=== PATIENT | male | born 1950 | race Caucasian/White ===

== ENCOUNTER 2020-11-24 | Outpatient (REF) | payer MEDICARE, SELFPAY ==
--- NOTE | ~2020-11-24 | XR_ITS ---
EXAMINATION: XR SHOULDER, LEFT CLINICAL INFORMATION: Shoulder pain COMPARISON: None TECHNIQUE: The left shoulder is imaged in 3 views. FINDINGS: There are degenerative changes glenohumeral joint with joint narrowing and mild subchondral sclerosis and inferior spurring from the glenoid rim and inferior medial humeral head. No erosive change. There are mild degenerative changes acromioclavicular joint without separation. No visible rotator cuff calcifications. XR/XR shoulder LT min 2V IMPRESSION: 1. Degenerative changes glenohumeral joint and acromioclavicular joint. 2. No visible rotator cuff calcifications.
== END 2020-11-24 00:01 | disposition home or self-care (01) ==
LOC: HO.HOSX
PROVIDERS: Visit Provider Orthopaedic Surgery
DX: M25.512 Pain in left shoulder (principal)
CPT/HCPCS: 73030

== ENCOUNTER → 2020-11-24 12:31 | Outpatient (BNVA) | payer MEDICARE, SELFPAY | PROVIDERS: PCP Internal Medicine; Visit Provider Orthopaedic Surgery | DX: M19.012 Primary osteoarthritis, left shoulder (principal) | CPT/HCPCS: Q3014 ==

== ENCOUNTER 2021-01-18 13:03 | Outpatient (REF) | payer MEDICARE, SELFPAY ==
[2021-01-18 15:07] LABS: PSA,Total (Free>4and<10) 21.57 ng/mL (0.00-4.00)
== END 2021-01-18 13:04 | disposition home or self-care (01) ==
LOC: HO.LAB 13:03
PROVIDERS: PCP Internal Medicine; Visit Provider Urology
DX: Z12.5 Encounter for screening for malignant neoplasm of prostate (principal); R97.20 Elevated prostate specific antigen [PSA]
CPT/HCPCS: 36415; 84153

== ENCOUNTER 2021-04-29 11:54 | Outpatient (REF) | payer MEDICARE, SELFPAY ==
[2021-04-29 13:27] LABS: Alanine Aminotransferase 21 U/L (0-40); Albumin Level 4.8 g/dL (3.5-5.0); Alkaline Phosphatase 60 U/L (39-117); Anion Gap 18 (12-20); Aspartate Amino Transferase 21 U/L (5-37); Bilirubin Total 0.6 mg/dL (0.0-1.0); Blood Urea Nitrogen 25 mg/dL (9-16); Calcium 10.4 mg/dL (8.4-10.2); Carbon Dioxide 26 mmol/L (22-29); Chloride 103 mmol/L (96-108); Estimated Glomerular Filt Rate > 60; Glucose Random 77 mg/dL (60-115); Potassium 5.6 mmol/L (3.3-5.1); Sodium 141 mmol/L (135-145); Total Protein 7.8 g/dL (6.5-8.0); Uric Acid 10.8 mg/dL (3.4-7.0)
== END 2021-04-29 11:55 | disposition home or self-care (01) ==
LOC: HO.LAB 11:54
PROVIDERS: PCP Internal Medicine; Visit Provider Nurse Practitioner Family
DX: M79.89 Other specified soft tissue disorders (principal)
CPT/HCPCS: 36415; 80053; 84550

== ENCOUNTER 2021-04-30 11:23 | Outpatient (REF) | payer MEDICARE, SELFPAY ==
--- NOTE | ~2021-04-30 | US_ITS ---
EXAMINATION: US VENOUS ULTRASOUND WITH DOPPLER LOWER EXTREMITY, RIGHT CLINICAL INFORMATION: Right foot swelling COMPARISON: None TECHNIQUE: Ultrasound of the deep veins is performed from the hip to the calf with compression sonography and color and pulse Doppler assessment. Spectral analysis with color-flow imaging is performed. FINDINGS: There is normal venous compression and respiratory variation and augmented flow. The visualized common femoral vein, superficial femoral vein, profunda femoral vein, popliteal vein, and the trifurcation region shows no evidence of deep venous thrombosis. There is no significant popliteal fossa cyst. If the patient's symptoms persist, followup ultrasound in 5 days 7 days might be of value to exclude proximal propagation from a non-visualized calf vein. US/US venous duplex LE RT IMPRESSION: No DVT demonstrated in the right lower extremity.
== END 2021-04-30 11:24 | disposition home or self-care (01) ==
LOC: HO.HMGCX 11:23
PROVIDERS: PCP Internal Medicine; Visit Provider Internal Medicine
DX: R60.0 Localized edema (principal); M79.89 Other specified soft tissue disorders
CPT/HCPCS: 93971

== ENCOUNTER → 2021-12-21 08:48 | Outpatient (BNVA) | payer SELFPAY | PROVIDERS: PCP Internal Medicine; Visit Provider Physician Assistant Medical | DX: Z02.79 Encounter for issue of other medical certificate (principal) ==

== ENCOUNTER 2022-05-14 10:10 | Emergency (ER) | payer MEDICARE, SELFPAY ==
--- NOTE | ~2022-05-14 | US_ITS ---
EXAMINATION: US VENOUS ULTRASOUND WITH DOPPLER LOWER EXTREMITY, RIGHT CLINICAL INFORMATION: Pain and swelling COMPARISON: None TECHNIQUE: Ultrasound of the deep veins is performed from the hip to the calf with compression sonography and color and pulse Doppler assessment. Spectral analysis with color-flow imaging is performed. FINDINGS: There is normal venous compression and respiratory variation and augmented flow. The visualized common femoral vein, superficial femoral vein, profunda femoral vein, popliteal vein, and the trifurcation region shows no evidence of deep venous thrombosis. There is no significant popliteal fossa cyst. If the patient's symptoms persist, followup ultrasound in 5 days 7 days might be of value to exclude proximal propagation from a non-visualized calf vein. US/US venous duplex LE RT IMPRESSION: No DVT demonstrated in the right lower extremity.
--- NOTE | ~2022-05-14 | XR_ITS ---
EXAMINATION: XR KNEE, RIGHT CLINICAL INFORMATION: Pain COMPARISON: Bilateral knee x-rays January 24, 2017 TECHNIQUE: Four views of the right knee. FINDINGS: No fracture or dislocation. Moderate size suprapatellar joint effusion. Joint spaces are well-maintained. Small enthesophytes off the superior patellar pole. No focal soft tissue swelling of the anterior knee. Mild vascular calcifications noted. XR/XR knee RT 4V IMPRESSION: Moderate joint effusion.
[2022-05-14 10:13] VITALS: BP 109/76; PULSE 63; RESP 14; TEMP 36.4; O2SAT 99; BMI 24.4
[2022-05-14 12:17] VITALS: BP 136/88; PULSE 70; RESP 12; O2SAT 99
[2022-05-14] MEDS: Ibuprofen 600 MG TABLET PO (12:25)
[2022-05-14] MEDS: predniSONE 20 MG TABLET 60 MG PO (12:25)
--- NOTE | 2022-05-14 12:25 | ED_ITS ---
HPI - Extremity Injury (Lower) General Chief Complaint: Extremity Injury, Lower Stated Complaint: ? DVT R Leg Time Seen by Provider: 05/14/22 10:15 History of Present Illness HPI Narrative: Patient complains of right leg and right knee pain, he did go swimming for the 1st time and felt some pain while he was swimming, was the 1st time and several weeks, but did not feel an abrupt muscle tear He has no shortness of breath or chest pain, no fever no redness no other joint swollen He does have a history of gout in the past Related Data Previous Rx's Medication Instructions Recorded prednisone 10 mg tablet 10 mg PO DAILY 14 days #14 tabs 10/13/21 doxycycline hyclate 100 mg tablet 100 mg PO BID 10 days #20 tabs 12/28/21 ibuprofen 800 mg tablet 800 mg PO Q8H PRN pain #20 tabs 05/14/22 Allergies Allergy/AdvReac Type Severity Reaction Status Date / Time levofloxacin [From LEVAQUIN] Allergy Unknown JOINT Verified 04/29/21 11:20 SWELLING Review of Systems Review of Systems: Positive for right knee and right leg pain Negatives are no fever no chills no dizziness no weakness no fainting no feeling faint no headache no neck pain no back pain no chest pain no shortness of breath no skin rash no other joints swollen Yes all other systems are reviewed and are negative PMFSH Past Medical History Source: nursing notes reviewed Medical History Gout Hernia Surgical History Hx of appendectomy Family History Family History Mother No problems noted. Father No problems noted. 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 Physical Exam Vital Signs: Vital Signs: Last Vital Signs Temp 97.5 F 05/14/22 10:13 Pulse 70 05/14/22 12:17 Resp 12 05/14/22 12:17 BP 136/88 05/14/22 12:17 Pulse Ox 99 05/14/22 12:17 O2 Del Method 05/14/22 12:17 BMI result Body Mass Index 24.4 General appearance no distress Head is normocephalic atraumatic Neck is supple Chest is clear no respiratory distress Extremities the right knee is swollen, it does extend to 180 and flex past 90, there is no redness or warmth, skin is normal in appearance The right calf is tender and mildly swollen, no redness no warmth no wound Pulses are intact in dorsalis pedis, neurovascular intact distal with no impairment of sensation or motor function Skin no rashes Course Course Course Narrative: Ultrasound of the right leg was done and did not show a DVT, but as the leg is swollen and tender I did advise the patient that he should get a follow-up ultrasound in 5-7 days to confirm that there is no developing clot As he had history of gout we started prednisone to cover that possibility, x-ray also did show some osteoarthritis and effusion so this may also be osteoarthritis He will follow with his doctor in orthopedist Discharge Plan Discharge Clinical Impression: Effusion of right knee, Leg pain, right Patient Disposition: Home, Self-Care Additional Instructions: Ultrasound did not show a blood clot, but the leg was swollen and painful so it is recommended to get a follow-up ultrasound in 5-7 days through your primary care doctor or if that is not possible you can return here if symptoms persist For the right knee pain x-ray showed water on the knee as well as some arthritis so follow with orthopedist As you have had gout before there is a possibility that this is gout so we are treating with prednisone and Motrin Follow with primary doctor for referral for repeat ultrasound as well as recheck for possible gout Return to the ER any time any worse condition or any concerns Prescriptions: New ibuprofen 800 mg tablet 800 mg PO Q8H PRN (Reason: pain) Qty: 20 0RF No Action prednisone 10 mg tablet 10 mg PO DAILY 14 Days Qty: 14 0RF doxycycline hyclate 100 mg tablet 100 mg PO BID 10 Days Qty: 20 0RF Referrals: Owen Heaton MD [Physician] - (Right knee effusion and arthritis)
== END 2022-05-14 12:30 | disposition home or self-care (01) ==
PROVIDERS: Emergency Provider Emergency Medicine; PCP Internal Medicine
DX: M25.461 Effusion, right knee (principal); M79.604 Pain in right leg; M17.11 Unilateral primary osteoarthritis, right knee
CPT/HCPCS: 73564; 93971; 99283; 99284

== ENCOUNTER 2023-06-28 09:34 | Outpatient (AMB) | payer MEDICARE, SELFPAY ==
--- NOTE | 2023-06-28 10:22 | MHC.OFFWIV ---
Intake Vital Signs 06/28/23 10:24 Height 5 ft 11 in Weight 187 lb BMI 26.1 BP 120/80 Blood Pressure Location Lt brachial Position Sitting Pulse 48 L Pulse Source Pulse Oximeter Pulse Oximetry (%) 100 Oxygen Delivery Method Room Air Intake Visit Reasons: EP, Right lower arm swelling due to bug bite Intake Note: Patient here because he was bit bug yesterday while in the yard and right hand is very swollen and red, His had marked it last night and when they checked it this morning they noticed the swelling and redness has spread up the arm. pt denies it being painful just itchy at times. Patient Tobacco Use Status: Former Tobacco user (20 years ago) Quit Date: 20 years ago Allergies levofloxacin [From LEVAQUIN] Allergy (Unknown, Verified 06/28/23 10:26) JOINT SWELLING Do you need a note to return to daycare/school/sports/work: No HPI EP, Right lower arm swelling due to bug bite HPI Details 72-year-old male presents to the office for a sick visit. Patient is reporting swelling in the right hand. Symptoms started after a bug bite. Predominant symptoms of itching. [facility] Medical History Gout Hernia Surgical History Hx of appendectomy Family History Mother No problems noted. Father No problems noted. 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 Able to flex and extend fingers with no difficulty. Will full range of motion at the wrist. Assessment & Plan Assessment & Plan (1) Bee sting allergy: Code(s): Z91.030 - Bee allergy status Plan: Prednisone called in. If symptoms do not improve to follow-up here. Medications: New prednisone 60 mg (3 x 20 mg) PO DAILY 9 tabs 0RF Coding Level of Care Code Est Pt Level 3 (82016) Diagnoses Bee sting allergy Z91.030
[2023-06-28 10:24] VITALS: BP 120/80; PULSE 48; O2SAT 100; BMI 26.1
== END 2023-06-28 12:31 | disposition home or self-care (01) ==
PROVIDERS: PCP Internal Medicine; Visit Provider Internal Medicine
DX: Z91.030 Bee allergy status (principal)
CPT/HCPCS: 99213

== ENCOUNTER 2023-08-15 12:49 | Outpatient (AMB) | payer MEDICARE, SELFPAY ==
[2023-08-15 12:51] VITALS: BP 138/78; PULSE 65; O2SAT 97; BMI 25.1
--- NOTE | 2023-08-15 12:51 | MHC.PC.OV ---
Vital Signs 08/15/23 12:51 Height 5 ft 11 in Weight 180 lb BMI 25.1 BP 138/78 Blood Pressure Location Lt brachial Position Sitting Pulse 65 Pulse Source Pulse Oximeter Pulse Oximetry (%) 97 Oxygen Delivery Method Room Air Intake Visit Reasons: Annual Exam Rn Hospice Required: No Accompanied by: Self / Same As Patient Allergies levofloxacin [From LEVAQUIN] Allergy (Unknown, Verified 08/15/23 13:19) JOINT SWELLING Medication List - Last Reconciled 08/15/23 by Too Cain MD No Known Home Meds Tobacco use date assessed: 02/10/23 Fall risk assessment: No Falls in past year Last assessed Fall Risk: 08/15/23 Dental Screening Dental Screen Date: 08/15/23 Did you have a dental visit in the last 12 months?: Yes Did you have a dental problem in the last 6 months where you did not have access to dental care?: No Was dental information given to patient?: Patient has dentist HPI Annual Exam HPI Details Patient comes in today for his annual physical examination - he was last seen by me in October 2019 States that he has been sick since last week, with increased cough and congestion, fever and sore throat States that he tested negative for COVID on a home test kit done a few days ago He is presently taking some OTC Nyquil PRN for symptomatic relief and feels that his coughing is a lot better now although he still feels like he has some chest congestion now He denies any headaches or dizziness Denies any chest pains, has some RODRIGUEZ that are mostly mild lately No nausea/vomiting, no abdominal pain No change in bowel habits noted Denies any acute urinary symptoms PFSH Medical History (Updated 08/16/23 @ 05:40 by Too Cain MD) Elevated PSA Osteoarthritis Pure hypercholesterolemia Hernia Gout Surgical History (Updated 08/16/23 @ 05:39 by Too Cain MD) Hx of prostate biopsy (~04/09/13) Hx of appendectomy (~1995) Family History Mother No problems noted. Father No problems noted. 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 1. Little interest or pleasure in doing things: not at all 2. Feeling down, depressed, or hopeless: not at all 3. Trouble falling or staying asleep, or sleeping too much: not at all 4. Feeling tired or having little energy: not at all 5. Poor appetite or overeating: not at all 6. Feeling bad about yourself - or that you are a failure or have let yourself or your family down: not at all 7. Trouble concentrating on things, such as reading the newspaper or watching television: not at all 8. Moving or speaking so slowly that other people could have noticed. Or the opposite - being so fidgety or restless that you have been moving around a lot more than usual: not at all 9. Thoughts that you would be better off or of hurting yourself in some way: not at all Total score: 0 Depression Screening Interpretation: Negative Depression Screening Done: Yes 28778 - PHQ-9 Billing: Yes Source: Developed by Drs. Anatoliy Mazariegos, Ce Lino, Johnny Sifuentes and colleagues, with an educational adrienne from [employer]. Thrive Questionnaire Date Thrive assessed: 08/15/23 I am a: Patient What is your living situation today?: I have a steady place to live Within the past 12 months, did the food you bought not last and you didn't have the money to get more?: Never true Within the past 12 months, did you worry whether your food would run out before you got money to buy more?: Never true Do you have trouble paying for medicines?: No Do you have trouble getting transportation to medical appointments?: No Do you have trouble paying your heating and electricity bill?: No Do you have trouble taking care of your child, family member or friend?: No Do you have trouble with day-to-day activities such as bathing, preparing meals, shopping, managing finances, etc.?: No Are you currently unemployed and looking for a job?: No Are you interested in more education?: No Currently or been in a relationship where the following occur: no concerns reported AUDIT C Alcohol Use Questionnaire (AUDIT-C) 1. How often do you have a drink containing alcohol?: Never 3. How often do you have six or more drinks on one occasion?: Never Total Score: 0 Score Reviewed/Action Taken: Yes TANYA-7 AMB Questionnaire TANYA-7 Date TANYA - 7 assessed: 02/10/23 Source: Developed by Drs. Anatoliy Mazariegos, Ce Lino, Johnny Sifuentes and colleagues, with an educational adrienne from [employer]. Review of Systems Const Denies chills, Denies fatigue, Denies fever(s), Denies headache(s), Denies malaise and Denies weakness Eyes Denies blurry vision, Denies change in vision, Denies irritation and Denies itchy eyes ENT Denies dysphagia, Denies dizziness, Denies otalgia, Denies headache(s), Denies nasal congestion, Denies neck pain, Denies odynophagia and Denies sore throat Card Denies chest pain, Denies rapid heart rate, Denies irregular heart rhythm, Denies palpitations and Denies dyspnea Resp Denies chest congestion, Denies cough, Denies dyspnea and Denies wheezing GI Denies abdominal pain, Denies bloating, Denies constipation, Denies dysphagia, Denies heartburn, Denies diarrhea, Denies nausea, Denies odynophagia and Denies vomiting Denies hematuria, Denies difficulty urinating, Denies dysuria, Denies urinary frequency and Denies urinary urgency Musc Denies back pain, Denies arthralgias, Denies joint swelling, Denies muscle weakness and Denies neck pain Skin/Breast Denies change in pigmentation, Denies lesions, Denies rash and Denies unusual bruising Neuro Denies dizziness, Denies headache(s), Denies paresthesias and Denies weakness Endo Denies fatigue and Denies palpitations Aller/Immun Denies itchy eyes and Denies wheezing Physical exam (Primary Care) Vital Signs: Last Vital Signs Pulse 65 08/15/23 12:51 BP 138/78 08/15/23 12:51 Pulse Ox 97 08/15/23 12:51 Oxygen Delivery Method Room Air 08/15/23 12:51 BMI result Body Mass Index 25.1 Tobacco/Smoking Status: Tobacco use Status Tobacco use date assessed 02/10/23 08/15/23 12:55 Patient Tobacco Use Status Former Tobacco user (08/15/23 12:55 years ago) PHQ-9: PHQ-9 Score PHQ-9: Total score 0 08/15/23 13:21 Depression Screening Interpretation: Negative Thrive Assessment: Date of Thrive Assessment Date Thrive assessed 04/29/21 08/15/23 12:55 Currently or been in a relationship where the following occur: no concerns reported Const General: no acute distress, alert and awake Orientation/consciousness: patient oriented x3 HENMT Head: Yes normocephalic and Yes atraumatic Ears: external ears normal, TM's normal bilaterally and EAC's normal General nose exam: No nasal discharge present Face and sinus: Yes normal facial exam and Yes sinuses nontender Teeth and gingiva: dentition normal Throat: Yes posterior oropharynx normal and Yes tonsils normal (no TP congestion) Eyes Eyelids: Yes eyelids normal Conjunctivae: conjunctivae normal Pupils: Equal, round and reactive pupils present EOM: EOMs intact bilaterally Neck Neck: Yes no lymphadenopathy and Yes supple Thyroid: Thyroid normal Resp Auscultation: clear to auscultation bilaterally, no rales and no wheezes Cardio Rate: regular rate Rhythm: regular rhythm Heart sounds: no murmurs GI Palpation (GI): Soft to palpation, nontender and No hepatosplenomegaly present Auscultation: normal bowel sounds General: Yes no CVA tenderness Back/Spine/Pelvis Back: no CVA tenderness Thoracic/Lumbar Spine: thoracic and lumbar spine normal to inspection Skin Lesions: no lesions Rashes: no rashes Neuro General: patient oriented x3, moves all extremities, no focal motor deficits and CN's II-XI intact bilaterally Cranial nerves: Yes Equal, round and reactive pupils present Cognition (Neuro): normal cognition Gait exam (Neuro): Normal gait present Extrem General: Yes no clubbing, cyanosis or edema Assessment and Plan Assessment & Plan (1) Annual physical exam: Code(s): Z00.00 - Encounter for general adult medical examination without abnormal findings Plan: Check labs (2) Pure hypercholesterolemia: Code(s): E78.00 - Pure hypercholesterolemia, unspecified Plan: Reinforced low cholesterol diet His total cholesterol level was at 272 mg/dL and LDL cholesterol was at 214 mg/dL when they were last checked back on 10/14/2019 - patient has not had his cholesterol rechecked since Will have him recheck his fasting lipids RICK for follow-up (3) Elevated PSA: Code(s): R97.20 - Elevated prostate specific antigen [PSA] Plan: Patient states that he's had a couple of biopsies done in the past that came out negative States that he has no significant urinary symptoms Follow up with urology as scheduled (4) Gout: Code(s): M10.9 - Gout, unspecified Qualifiers: Gout site: unspecified site Gout etiology: idiopathic Chronicity: chronic Presence of tophus: without tophus Qualified Code(s): M1A.00X0 - Idiopathic chronic gout, unspecified site, without tophus (tophi) Plan: Reinforced low purine diet Serum uric acid level was still elevated at 10.8 when last checked on 04/29/2021; was up to 17.4 back on 10/14/2019 Patient states that he's had no acute gout flare ups lately Will recheck his serum uric acid level RICK for follow up (5) Osteoarthritis: Code(s): M19.90 - Unspecified osteoarthritis, unspecified site Qualifiers: Osteoarthritis location: multiple joints Osteoarthritis type: primary Qualified Code(s): M15.9 - Polyosteoarthritis, unspecified Plan: X-rays of the left shoulder done back on 11/24/2020 revealed (+) degenerative changes of the glenohumeral joint and acromioclavicular joint. MRI of the right hip done back in August 2019 revealed mild osteoarthritis of the right hip with anterosuperior labral tear and moderate right distal gluteus minimus tendinosis and trochanteric bursitis Follow-up with orthopedics as scheduled or as needed (6) Colon cancer screening: Code(s): Z12.11 - Encounter for screening for malignant neoplasm of colon Plan: Patient states that he's had a colonoscopy done in the past (many years ago) but cannot remember exactly when and where - is likely done in [place] as there is no record of this in his chart here at [facility] ever since he started coming here as a patient back in 2012 and is more than 10 years ago Recall that he had a bout of diverticulitis after his colonoscopy and he does not wish to have a repeat colonoscopy done because of this but agrees to do Cologuard testing instead - Cologuard ordered Plan Follow up in 6 months Orders: Orders Complete Blood Count Auto Diff 08/15/23 Z00.00 - Encounter for general adult medical examination without abnormal findings TSH reflex Free T4 08/15/23 E78.00 - Pure hypercholesterolemia, unspecified, Z00.00 - Encounter for general adult medical examination without abnormal findings UA CC w/rflx Micro + Cult 08/15/23 R30.0 - Dysuria, Z00.00 - Encounter for general adult medical examination without abnormal findings Vitamin D 25-OH Total 08/15/23 E55.9 - Vitamin D deficiency, unspecified, Z00.00 - Encounter for general adult medical examination without abnormal findings PSA,Total (Free>4and<10) 08/15/23 R97.20 - Elevated prostate specific antigen [PSA], Z00.00 - Encounter for general adult medical examination without abnormal findings Comprehensive [place]. Panel Fast 08/15/23 E78.00 - Pure hypercholesterolemia, unspecified, Z00.00 - Encounter for general adult medical examination without abnormal findings Lipid Panel 08/15/23 E78.00 - Pure hypercholesterolemia, unspecified, Z00.00 - Encounter for general adult medical examination without abnormal findings Uric Acid 08/15/23 M10.9 - Gout, unspecified, Z00.00 - Encounter for general adult medical examination without abnormal findings XR chest 2V 08/15/23 J98.8 - Other specified respiratory disorders Referrals Cologuard Test Z12.11 - Encounter for screening for malignant neoplasm of colon, Z12.12 - Encounter for screening for malignant neoplasm of rectum Review Patient declined Colonoscopy: 08/15/23 Coding Level of Care Code Est Pt Prev Care >65y(24867) Diagnoses Annual physical exam Z00.00 Pure hypercholesterolemia E78.00 Elevated PSA R97.20 Idiopathic chronic gout without tophus, unspecified site M1A.00X0 Gout site: unspecified site Gout etiology: idiopathic Chronicity: chronic Presence of tophus: without tophus Primary osteoarthritis involving multiple joints M15.9 Osteoarthritis location: multiple joints Osteoarthritis type: primary Colon cancer screening Z12.11
== END 2023-08-15 13:38 | disposition home or self-care (01) ==
LOC: HO.HMGH 12:49
PROVIDERS: PCP Internal Medicine; Visit Provider Internal Medicine
DX: Z00.00 Encounter for general adult medical examination without abnormal findings (principal); E78.00 Pure hypercholesterolemia, unspecified; R97.20 Elevated prostate specific antigen [PSA]; M1A.00X0 Idiopathic chronic gout, unspecified site, without tophus (tophi); M15.9 Polyosteoarthritis, unspecified; Z12.11 Encounter for screening for malignant neoplasm of colon
CPT/HCPCS: 99214; 99397

== ENCOUNTER 2023-08-17 07:45 | Outpatient (REF) | payer MEDICARE, SELFPAY ==
--- NOTE | ~2023-08-17 | XR_ITS ---
EXAMINATION: XR CHEST CLINICAL INFORMATION: Respiratory disorders. COMPARISON: None available. TECHNIQUE: 2 views of the chest were obtained. FINDINGS: Degenerative changes in the thoracic spine. Cardiac silhouette borderline enlarged. There is no gross pneumothorax. No pleural effusion. A 1 cm nodular density projects over the posterior inferior aspect of a lower thoracic vertebral body, possibly a bony, soft tissue or lung parenchymal nodule. Dedicated CT scan of the chest recommended for further evaluation. XR/XR chest 2V IMPRESSION: 1. A 1 cm nodular density projects over the posterior inferior aspect of a lower thoracic vertebral body, possibly a bony, soft tissue or lung parenchymal nodule. Dedicated CT scan of the chest recommended for further evaluation. 2. Borderline enlarged cardiac silhouette.
[2023-08-17 07:59] LABS: MANUAL DIFF FLAG NO
[2023-08-17 08:11] LABS: Basophils Absolute Auto 0.1 X10*3/uL (0.0-0.2); Basophils Percent Auto 0.6 % (0-2); Eosinophils Absolute Auto 0.2 X10*3/uL (0.0-0.4); Eosinophils Percent Auto 1.4 % (0-4); Hematocrit 41.9 % (42.0-52.0); Hemoglobin 13.6 g/dl (14.0-18.0); Imm Gran Pct Auto 0.9 % (0.0-0.4); Lymphocytes Absolute Auto 2.7 X10*3/uL (1.2-4.9); Lymphocytes Percent Auto 25.1 % (20-40); Mean Corpuscular HGB Conc 32.5 g/dl (31.0-36.0); Mean Corpuscular Hemoglobin 28.3 pg (27.0-33.0); Mean Corpuscular Volume 87.1 fL (80.0-98.0); Mean Platelet Volume 8.8 fL (9.4-12.4); Monocytes Absolute Auto 0.7 X10*3/uL (0.1-1.2); Monocytes Percent Auto 6.6 % (2-11); Neutrophils Absolute Auto 7.1 x10*3/uL (2.0-8.3); Neutrophils Percent Auto 65.4 % (45-73); Platelet Count 430 X10*3/uL (160-400); Red Blood Count 4.81 X10*6/uL (4.60-5.80); White Blood Count 10.9 X10*3/uL (4.8-10.8)
[2023-08-17 08:22] LABS: Appearance Urine Clear; Color Urine Yellow; Glucose Urine UA Negative (Negative); Leukocyte Esterase Urine Negative (Negative); Nitrite Urine Negative (Negative); PH 5.5 (5.0-9.0); Urine Blood Negative (Negative); Urine Ketones Negative (Negative); Urine Protein Negative (Neg-Trace)
[2023-08-17 08:47] LABS: Alanine Aminotransferase 25 U/L (0-40); Albumin Level 4.3 g/dL (3.5-5.0); Alkaline Phosphatase 62 U/L (39-117); Anion Gap 13 (12-20); Aspartate Amino Transferase 23 U/L (5-37); Bilirubin Total 0.3 mg/dL (0.0-1.0); Blood Urea Nitrogen 20 mg/dL (9-16); Calcium 9.8 mg/dL (8.4-10.2); Carbon Dioxide 28 mmol/L (22-29); Chloride 105 mmol/L (96-108); Cholesterol 253 mg/dL (<200); Estimated Glomerular Filt Rate > 60; Glucose Fasting 108 mg/dL (60-99); HDL Cholesterol 38 mg/dL (>40); LDL Cholesterol Calculated 195 mg/dL (<100); Potassium 5.3 mmol/L (3.3-5.1); Sodium 141 mmol/L (135-145); Total Protein 7.7 g/dL (6.5-8.0); Triglycerides 102 mg/dL (<150); Uric Acid 6.8 mg/dL (3.4-7.0)
[2023-08-17 09:03] LABS: Vitamin D 25-OH Total 126.3 ng/mL (>30)
[2023-08-17 09:10] LABS: PSA,Total (Free>4and<10) 17.34 ng/mL (0.00-4.00)
== END 2023-08-17 07:46 | disposition home or self-care (01) ==
LOC: HO.XRAY 07:45
PROVIDERS: PCP Internal Medicine; Visit Provider Internal Medicine
DX: Z00.00 Encounter for general adult medical examination without abnormal findings (principal); Z12.5 Encounter for screening for malignant neoplasm of prostate; E78.00 Pure hypercholesterolemia, unspecified; R97.20 Elevated prostate specific antigen [PSA]; M10.9 Gout, unspecified; R30.0 Dysuria; E55.9 Vitamin D deficiency, unspecified; J98.8 Other specified respiratory disorders
CPT/HCPCS: 36415; 71046; 80053; 80061; 81003; 82306; 84153; 84443; 84550; 85025

== ENCOUNTER 2023-09-14 14:14 | Outpatient (REF) | payer MEDICARE, SELFPAY ==
--- NOTE | ~2023-09-14 | CT_ITS ---
EXAMINATION: CT CHEST WITH CONTRAST CLINICAL INFORMATION: 1 cm nodular density in posterior inferior lower thoracic vertebral body seen on chest x-ray COMPARISON: Chest x-ray on 08/17/2023, CT scan of chest on 12/03/2019 TECHNIQUE: Multidetector volumetric CT imaging of the chest was obtained after the administration of 65 mL of Omnipaque 350 intravenous contrast without immediate adverse reactions. Axial MIP volume rendering provided. Sagittal and coronal reformatted images were obtained. This CT examination was performed using dose optimization techniques as appropriate, variously including the following: *Automated exposure control *Adjustment of mA and/or kV according to patient size (this includes techniques or standardized protocols for targeted exams where dose is matched to indication/reason for exam; i.e. extremities or head) *Use of iterative reconstruction technique DLP: 129 mGy-cm FINDINGS: LUNGS: Oblique sagittal platelike atelectasis is seen in the left lower lobe posterior segment. A spiculated irregular lesion with air bronchograms is seen in left lower lobe posterior basal segment extending to the left lung base, measuring 1.9 cm in AP diameter, 1.7 cm in width, 3.7 cm in vertical height, series 6 image #163, series 9 image #30. Branching collection of spiculated lesions with air bronchograms is seen in right lower lobe posterior basal segment extending to the right lung base, measuring 1.4 cm in AP diameter, 2.7 cm in width, 1.6 cm in vertical height, series 6 image # [id number], series 9 image # 78. A groundglass nodule is seen at lateral pleural border of right upper lobe apical segment measuring 0.7 cm in diameter, series 6 image #53. A groundglass lesion is seen in posterior lateral right upper lobe apical segment, measuring 1.4 cm in AP diameter, 3.2 cm in width, 1.4 cm in vertical height, series 6 image #68, series 9 image #93. Irregular nodule is seen at anterior lateral left upper lobe anterior segment, measuring 5.5 mm in size, series 6 image #85-88. PLEURA: No pleural effusion or pneumothorax is seen. PERICARDIUM: No pericardial effusion is seen. MEDIASTINUM AND DESIREE: No abnormally enlarged mediastinal or hilar lymph nodes are seen. TRACHEOBRONCHIAL TREE: Trachea and bilateral mainstem bronchi are patent. THORACIC AORTA: The thoracic aorta is normal in size and smoothly patent. CORONARY ARTERY CALCIFICATIONS: Mild PULMONARY ARTERIES: The main pulmonary arteries show normal enhancement. CHEST WALL AND LOWER NECK: The subcutaneous and muscular chest wall are intact with no focal lesion. No abnormal mass lesion could be seen in the visualized lower neck. BONES: Multilevel advanced degenerative thoracic disc disease, anterior and lateral syndesmophytes are present. Right No fracture or dislocation. No focal bone lesion diagnostic of metastatic disease could be seen in the thorax. VISUALIZED UPPER ABDOMEN: Bilateral adrenal glands are not enlarged. CT/CT chest w IV con IMPRESSION: 1. Interval development of Multiple spiculated irregular lesions with air bronchograms are seen in both lower lobes, as described above. Findings could represent focal infection especially atypical pneumonia, but developing lung tumors are difficult to exclude. According to the UPDATED 2017 Fleischner Society recommendations, the advised follow-up imaging for multiple solid nodules with the largest measuring greater than [address] of [address] at 3 months, PET/CT, or tissue sampling as clinically appropriate if nodules are located in the upper lobe and/or demonstrate suspicious morphology. If multiple solid nodules greater than 8mm are located in the middle/lower lobes, recommend CT follow-up at 3 to 6 months. In high risk patients, subsequent CT follow-up at 18 to 24 months is recommended. In low-risk patients, subsequent CT follow-up at 18 to 24 months is optional. 2. Additional groundglass lesions are seen in right upper lobe apical segment, also suspicious of atypical pneumonia. 3. No abnormally enlarged mediastinal and/or hilar lymph nodes. Fleischner guidelines were followed.
[2023-09-14] MEDS: iohexoL 350 MG/ML 100 ML INFUS..BTL IV (15:09)
== END 2023-09-14 14:15 | disposition home or self-care (01) ==
LOC: HO.CT 14:14
PROVIDERS: Visit Provider Internal Medicine
DX: R91.1 Solitary pulmonary nodule (principal)
CPT/HCPCS: 71260; Q9967

== ENCOUNTER 2023-10-05 09:12 | Outpatient (REF) | payer MEDICARE, SELFPAY ==
[2023-10-05 10:16] LABS: MANUAL DIFF FLAG NO
[2023-10-05 11:37] LABS: Basophils Absolute Auto 0.1 X10*3/uL (0.0-0.2); Basophils Percent Auto 0.7 % (0-2); Eosinophils Absolute Auto 0.1 X10*3/uL (0.0-0.4); Eosinophils Percent Auto 1.7 % (0-4); Hematocrit 42.9 % (42.0-52.0); Hemoglobin 14.3 g/dl (14.0-18.0); Imm Gran Abs Auto 0.02 X10*3/uL (0.00-0.03); Imm Gran Pct Auto 0.3 % (0.0-0.4); Lymphocytes Absolute Auto 2.4 X10*3/uL (1.2-4.9); Lymphocytes Percent Auto 32.7 % (20-40); Mean Corpuscular HGB Conc 33.3 g/dl (31.0-36.0); Mean Corpuscular Hemoglobin 28.7 pg (27.0-33.0); Mean Corpuscular Volume 86.1 fL (80.0-98.0); Mean Platelet Volume 10.3 fL (9.4-12.4); Monocytes Absolute Auto 0.6 X10*3/uL (0.1-1.2); Monocytes Percent Auto 8.3 % (2-11); Neutrophils Absolute Auto 4.2 x10*3/uL (2.0-8.3); Neutrophils Percent Auto 56.3 % (45-73); Platelet Count 286 X10*3/uL (160-400); Red Blood Count 4.98 X10*6/uL (4.60-5.80); Red Cell Distribution Width 14.7 % (11.0-16.0); White Blood Count 7.5 X10*3/uL (4.8-10.8)
[2023-10-05 12:12] LABS: Erythrocyte Sedimentation Rate 9 MM/HR (0-15)
[2023-10-05 12:23] LABS: Anion Gap 12 (12-20); Blood Urea Nitrogen 18 mg/dL (9-16); Calcium 9.7 mg/dL (8.4-10.2); Carbon Dioxide 29 mmol/L (22-29); Chloride 103 mmol/L (96-108); Estimated Glomerular Filt Rate > 60; Glucose Random 90 mg/dL (60-115); Sodium 140 mmol/L (135-145)
[2023-10-06 15:34] LABS: Anti Nuclear Antibody Screen NEGATIVE (NEGATIVE)
[2023-10-06 16:54] LABS: IgA 158 mg/dL (70-320); IgG 1105 mg/dL (600-1540); IgM 85 mg/dL (50-300)
[2023-10-07 04:18] LABS: Immunoglobulin E 12 kU/L (<OR=114)
[2023-10-08 04:58] LABS: Angiotensin Converting Enzyme 26 U/L (9-67)
[2023-10-11 13:18] LABS: Asperg fumigatus Precip Abs NEGATIVE (NEGATIVE); Micropoly faeni Abs NEGATIVE (NEGATIVE); Pigeon serum Abs NEGATIVE (NEGATIVE); Saccharo pora viridis Abs NEGATIVE (NEGATIVE); Thermo candidus Abs NEGATIVE (NEGATIVE); Thermoa vulgaris #1 NEGATIVE (NEGATIVE)
== END 2023-10-05 09:13 | disposition home or self-care (01) ==
LOC: HO.LAB 09:12
PROVIDERS: PCP Internal Medicine; Visit Provider Hospitalist
DX: T78.40XA Allergy, unspecified, initial encounter (principal); R91.8 Other nonspecific abnormal finding of lung field; J98.4 Other disorders of lung; J18.9 Pneumonia, unspecified organism
CPT/HCPCS: 36415; 80048; 82164; 82784; 82785; 85025; 85652; 86003; 86038; 86331; 86606; 86609; 99202

== ENCOUNTER 2023-10-05 09:12 | Outpatient (AMB) | payer MEDICARE, SELFPAY ==
--- NOTE | 2023-10-05 09:29 | A.OFFVIS_ITS ---
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 The patient is a 73-year-old gentleman with a history of a chronic cough. Apparently went to see his primary care doctor after having some type of transient respiratory illness. She is noted to have abnormal breath sounds therefore he underwent a chest x- ray which was noted to be abnormal. Based on the abnormal chest x-ray he was requested to have a CT scan of the chest which she uses had. The patient otherwise is feeling well denies any fevers or chills. Denies any weight loss. He does have a smoking history but quit more than 20 years ago. He does exercise regularly which is reassuring. Denies any night sweats. He does coughing at times is productive in nature. Sometimes he wakes up in the morning and staying the pillows from mucus while sleeping. His CT scan of the chest was personally by me I also discussed it with the patient and his . Does have some areas of ground-glass opacities suggesting some degree of pneumonitis. Appears to be more right than left. In addition to that does have some more nodular solid looking densities in the lower lung zones left more than right. Somewhat spiculated in nature. Sat clear of these entities are the same process. Indeed with his recent illness this still could be some remnants of a smoldering infection although malignancy is also in differential. As far as exposures he denies any exposure to any mold or any animals or birds. He does have a sauna. He has been using it regularly. Therefore, will have the patient undergo blood work. Will start him on a course of doxycycline to treating for and impaired infection. In addition to that he will undergo PFTs. In 8 weeks will have him repeat a CT scan of the chest to see if the areas have improved. If the nodular density has not improved then will consider further diagnostic testing at that point. [facility] Medical History (Updated 10/09/23 @ 21:20 by Ghassan Nguyễn MD) Pneumonitis Allergies Elevated PSA Osteoarthritis Pure hypercholesterolemia Hernia Gout Surgical History (Updated 08/16/23 @ 05:39 by Too Cain MD) Hx of prostate biopsy (~04/09/13) Hx of appendectomy (~1995) Family History Mother No problems noted. Father No problems noted. 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 Review of Systems Const Denies chills, Denies fatigue, Denies fever(s), Denies headache(s), Denies malaise and Denies weakness Eyes Denies blurry vision, Denies change in vision, Denies irritation and Denies itchy eyes ENT Denies dysphagia, Denies dizziness, Denies otalgia, Denies headache(s), Denies nasal congestion, Denies neck pain, Denies odynophagia and Denies sore throat Card Denies chest pain, Denies rapid heart rate, Denies irregular heart rhythm, Denies palpitations and Denies dyspnea Resp Denies chest congestion, Denies cough, Denies dyspnea and Denies wheezing GI Denies abdominal pain, Denies bloating, Denies constipation, Denies dysphagia, Denies heartburn, Denies diarrhea, Denies nausea, Denies odynophagia and Denies vomiting Denies hematuria, Denies difficulty urinating, Denies dysuria, Denies urinary frequency and Denies urinary urgency Musc Denies back pain, Denies arthralgias, Denies joint swelling, Denies muscle weakness and Denies neck pain Skin/Breast Denies change in pigmentation, Denies lesions, Denies rash and Denies unusual bruising Neuro Denies dizziness, Denies headache(s), Denies paresthesias and Denies weakness Endo Denies fatigue and Denies palpitations Aller/Immun Denies itchy eyes and Denies wheezing Physical Exam Vital Signs: Last Vital Signs Pulse 56 10/05/23 09:30 BP 128/70 10/05/23 09:30 Pulse Ox 98 10/05/23 09:30 Oxygen Delivery Method Room Air 10/05/23 09:30 BMI result Body Mass Index 26.4 Const General: comfortable HEENT Head: Yes normocephalic Neck Neck: Yes supple Chest Chest palpation & inspection: normal inspection of the chest Resp Effort & Inspection: normal respiratory effort Auscultation: clear to auscultation bilaterally Cardio Heart sounds: S1 normal heart sound present and S2 normal heart sound present GI Palpation (GI): Soft to palpation Skin General skin exam: no rashes or lesions noted Extrem General: Yes no clubbing, cyanosis or edema Assessment & Plan Assessment & Plan (1) Pulmonary nodules/lesions, multiple: Code(s): R91.8 - Other nonspecific abnormal finding of lung field (2) Pneumonitis: Code(s): J98.4 - Other disorders of lung (3) Allergies: Code(s): T78.40XA - Allergy, unspecified, initial encounter Qualifiers: Encounter type: initial encounter Qualified Code(s): T78.40XA - Allergy, unspecified, initial encounter (4) Pneumonia: Code(s): J18.9 - Pneumonia, unspecified organism Qualifiers: Pneumonia type: due to unspecified organism Laterality: unspecified laterality Lung location: unspecified part of lung Qualified Code(s): J18.9 - Pneumonia, unspecified organism Plan start Doxycline x 14 days Bloodwork/Allergy testing repeat CT chest in 8 weeks after the treatment of pneumonia F/U 10-12 weeks Orders: Orders Hypersensitive Pneumonitis Prf 10/05/23 J98.4 - Other disorders of lung, R91.8 - Other nonspecific abnormal finding of lung field, T78.40XA - Allergy, unspecified, initial encounter Immunoglobulins,IgG IgA IgM 10/05/23 J98.4 - Other disorders of lung, R91.8 - Other nonspecific abnormal finding of lung field, T78.40XA - Allergy, unspecified, initial encounter Immunoglobulin E 10/05/23 J98.4 - Other disorders of lung, R91.8 - Other nonspecific abnormal finding of lung field, T78.40XA - Allergy, unspecified, initial encounter Rast Allergen 10/05/23 J98.4 - Other disorders of lung, R91.8 - Other nonspecific abnormal finding of lung field, T78.40XA - Allergy, unspecified, initial encounter Basic Metabolic Panel 10/05/23 J98.4 - Other disorders of lung, R91.8 - Other nonspecific abnormal finding of lung field, T78.40XA - Allergy, unspecified, initial encounter ARIEL Reflex Titer and Pattern 10/05/23 J98.4 - Other disorders of lung, R91.8 - Other nonspecific abnormal finding of lung field, T78.40XA - Allergy, unspecified, initial encounter CT chest wo IV con 8 Weeks R91.8 - Other nonspecific abnormal finding of lung field Erythrocyte Sedimentation Rate 10/05/23 J98.4 - Other disorders of lung, R91.8 - Other nonspecific abnormal finding of lung field, T78.40XA - Allergy, unspecified, initial encounter Complete Blood Count Auto Diff 10/05/23 J98.4 - Other disorders of lung, R91.8 - Other nonspecific abnormal finding of lung field, T78.40XA - Allergy, unspecified, initial encounter Angiotensin Converting Enzyme 10/05/23 J98.4 - Other disorders of lung, R91.8 - Other nonspecific abnormal finding of lung field, T78.40XA - Allergy, unspecified, initial encounter Medications: New doxycycline monohydrate 100 mg PO BID 14 days 28 tabs 0RF R91.8 - Other nonspecific abnormal finding of lung field Coding Level of Care Code New Pt Level 4 (47451) Diagnoses Pulmonary nodules/lesions, multiple R91.8 Pneumonitis J98.4 Allergy, initial encounter T78.40XA Encounter type: initial encounter Pneumonia due to infectious organism, unspecified laterality, unspecified part of lung J18.9 Pneumonia type: due to unspecified organism Laterality: unspecified laterality Lung location: unspecified part of lung Time Spent (min) 40
[2023-10-05 09:30] VITALS: BP 128/70; PULSE 56; O2SAT 98; BMI 26.4
== END 2023-10-05 10:02 | disposition home or self-care (01) ==
PROVIDERS: PCP Internal Medicine; Visit Provider Hospitalist
DX: R91.8 Other nonspecific abnormal finding of lung field (principal); J98.4 Other disorders of lung; T78.40XA Allergy, unspecified, initial encounter; J18.9 Pneumonia, unspecified organism
CPT/HCPCS: 99204

== ENCOUNTER 2023-10-24 09:44 | Outpatient (REF) | payer MEDICARE, SELFPAY ==
--- NOTE | 2023-10-24 11:44 | PFT_ITS ---
Flows: FEV1: 108 % of predicted at 3.52 L FVC: 103 % of predicted at 4.49 L FEV1/FVC: 78 % Bronchodilator response: Absent Volumes: Total lung capacity: 87 % of predicted at 6.40 L Residual volume: 75 % of predicted at 2.00 L Slow vital capacity: 94 % of predicted at 4.40 L Expiratory reserve volume: 99 % of predicted at 1.29 L Diffusion capacity: Mildly decreased Impression: No obstructive or restrictive ventilatory defect. No bronchodilator response. Decreased diffusion capacity suggests emphysema. MTDD
== END 2023-10-24 09:45 | disposition home or self-care (01) ==
LOC: HO.RESP 09:44
PROVIDERS: PCP Internal Medicine; Visit Provider Hospitalist
DX: J98.4 Other disorders of lung (principal)
CPT/HCPCS: 94010; 94727; 94729

== ENCOUNTER → 2023-10-24 11:44 | Outpatient (BNV) | payer MEDICARE, SELFPAY | PROVIDERS: PCP Internal Medicine; Visit Provider Internal Medicine Pulmonary Disease | DX: R06.09 Other forms of dyspnea (principal) | CPT/HCPCS: 94060; 94727; 94729 ==

== ENCOUNTER 2023-11-07 14:27 | Outpatient (AMB) | payer MEDICARE, SELFPAY ==
[2023-11-07 14:36] VITALS: BP 158/75; PULSE 57; BMI 28.9
--- NOTE | 2023-11-07 14:36 | MHC.OFFVIS ---
Intake Vital Signs 11/07/23 14:36 Height 5 ft 8 in Weight 190 lb BMI 28.9 BP 158/75 H Blood Pressure Location Lt brachial Position Sitting Pulse 57 Intake Visit Reasons: Colonoscopy screening Intake Note: Patient presents to in office visit today as a new patient for colonoscopy screening. CC: Patient states that he had a colonoscopy done about 15 years ago. After the colonoscopy he was diagnosed with diverticulitis and he has been reluctant ever since to have colonoscopy done. Per patient he had a positive cologuard and his PCP advised him to come ant talk to GI specialist about his options. Health Center Manager Required: No Allergies levofloxacin [From LEVAQUIN] Allergy (Unknown, Verified 11/07/23 14:40) JOINT SWELLING HPI Colonoscopy screening HPI Details 73 year old? male here today for pre colonoscopy screening.? Patient was sent to us by his PCP.? Last colonoscopy 15 years ago. Patient just had a recent Cologuard that was positive. Patient reports that 2 or 3 months after his colonoscopy he had diverticulitis and was hospitalized.? Patient denies any gastrointestinal symptoms at this time.? Denies any personal or family history of gastrointestinal disease, colon polyps, or cancer.? Patient was found to have abnormal CT scan of the lungs and is going to see instrumentation tech again in December. Has repeat CT scan end of November. Patient does not want to proceed with colonoscopy at this point and he would like to reconsider end of December. Patient denies any melena, hematochezia, unintentional weight loss or ribbon like stools. Patient denies any dyspepsia, dysphagia or odynophagia. [facility] Medical History Pneumonitis Allergies Elevated PSA Osteoarthritis Pure hypercholesterolemia Hernia Gout Surgical History H/O right inguinal hernia repair H/O colonoscopy Hx of prostate biopsy (~04/09/13) Hx of appendectomy (~1995) Family History Mother No problems noted. Father No problems noted. 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 Review of Systems Const Denies weight gain and Denies weight loss ENT Reports no additional complaints, Denies dysphagia and Denies odynophagia Card Reports no additional complaints Resp Reports no additional complaints GI Denies abdominal pain, Denies belching, Denies melena, Denies bloating, Denies change in bowel habits, Denies dysphagia, Denies excessive flatus, Denies dyspepsia, Denies heartburn, Denies diarrhea, Denies loose stools, Denies nausea, Denies odynophagia and Denies vomiting Reports no additional complaints Musc Reports no additional complaints Neuro Reports no additional complaints Psych Reports no additional complaints Endo Reports no additional complaints Physical Exam Vital Signs: Last Vital Signs Pulse 57 11/07/23 14:36 BP 158/75 H 11/07/23 14:36 BMI result Body Mass Index 28.9 Const General: healthy appearing, no acute distress and well developed Nutritional Appearance: well nourished Orientation/consciousness: patient oriented x3 Resp Effort & Inspection: normal respiratory effort, able to speak in complete sentences, no tracheal deviation and symmetric chest movement Auscultation: clear to auscultation bilaterally Cardio Rate: regular rate GI Inspection: Yes normal to inspection and No distended Palpation (GI): Soft to palpation, not firm, nontender and No hepatosplenomegaly present Auscultation: normal bowel sounds General: Yes no CVA tenderness Back/Spine/Pelvis Back: no CVA tenderness Skin General skin exam: elasticity normal, turgor normal and dry skin Neuro General: patient oriented x3 Psych Appearance: grossly normal Mental Status: mental status grossly normal Assessment & Plan Assessment & Plan (1) Positive colorectal cancer screening using Cologuard test: Code(s): R19.5 - Other fecal abnormalities Plan Patient would like to reconsider going for colonoscopy. I will see him in and verbalizes understanding 2- 3 months, sooner on as needed basis. Patient is agreeable to this plan and verbalizes understanding. He was given the opportunity to ask questions and all questions answered. Thank you for allowing me to participate in his care Coding Level of Care Code New Pt Level 3 (00267) Diagnoses Positive colorectal cancer screening using Cologuard test R19.5 Time Spent (min) 40 Comment 30 minutes spent with patient and additional 10 minutes spent reviewing his records
== END 2023-11-07 15:09 | disposition home or self-care (01) ==
PROVIDERS: PCP Internal Medicine; Visit Provider Nurse Practitioner Family
DX: R19.5 Other fecal abnormalities (principal)
CPT/HCPCS: 99203

== ENCOUNTER → 2023-11-07 14:27 | Outpatient (BNVA) | payer MEDICARE, SELFPAY | PROVIDERS: PCP Internal Medicine; Visit Provider Nurse Practitioner Family | DX: R19.5 Other fecal abnormalities (principal) | CPT/HCPCS: 99202 ==

== ENCOUNTER 2023-11-30 10:36 | Outpatient (REF) | payer MEDICARE, SELFPAY ==
--- NOTE | ~2023-11-30 | CT_ITS ---
EXAMINATION: CT CHEST WITHOUT CONTRAST CLINICAL INFORMATION: Abnormal findings lung field COMPARISON: CT chest from 09/14/2023 TECHNIQUE: Multidetector volumetric CT imaging of the chest was done. Axial MIP volume rendering provided. Sagittal and coronal reformatted images were obtained. This CT examination was performed using dose optimization techniques as appropriate, variously including the following: *Automated exposure control *Adjustment of mA and/or kV according to patient size (this includes techniques or standardized protocols for targeted exams where dose is matched to indication/reason for exam; i.e. extremities or head) *Use of iterative reconstruction technique DLP: 254 mGy-cm FINDINGS: LUNGS/PLEURA: Previously identified spiculated irregular lesion with air bronchograms in the left lower lobe posteriorly demonstrates resolution. Additional spiculated branching lesions with air bronchograms in the right lower lobe also demonstrated resolution. Groundglass foci in the right upper lobe are no longer visualized. Stable 2 mm nodule in the lateral aspect of the left upper lobe (series 5, image 71). Triangular nodule anterior aspect of the left upper lobe (series 5, image 241), stable. Redemonstration of irregular nodule in the lateral aspect of the left upper lobe (series 5, image 223) measuring 5 mm, stable Stable subpleural calcified granuloma lateral aspect left upper lobe (series 5, image 281). No new enlarged or suspicious pulmonary nodules or masses are noted. Central airways are patent. No pneumothorax. No large pleural effusion. MEDIASTINUM: Heart is not enlarged. No pericardial effusion. Coronary artery calcifications are noted. Aneurysmal dilatation of the ascending aorta measuring 4.1 cm level of main pulmonary artery. Descending aorta at this level measures 2.4 cm. Main pulmonary artery is not enlarged. No enlarged lymph nodes per size criteria. Visualized portions of the thyroid are unremarkable. AXILLA: No lymphadenopathy. UPPER ABDOMEN: Colonic diverticulosis. OSSEOUS STRUCTURES: Osteopenia. Multilevel degenerative changes of the thoracolumbar spine. . CT/CT chest wo IV con IMPRESSION: 1. Previously identified spiculated irregular lesion with air bronchograms in the left lower lobe posteriorly demonstrates resolution. Additional spiculated branching lesions with air bronchograms in the right lower lobe also demonstrated resolution. Groundglass foci in the right upper lobe are no longer visualized. Resolution of previous findings give credence to potentially infectious/inflammatory etiology. 2. Stable bilateral pulmonary nodules the largest measuring up to 5 mm. Continued follow-up as per Fleischner criteria. No new enlarged or suspicious pulmonary nodules or masses are noted. 3. Aneurysmal dilatation of the ascending aorta measuring 4.1 cm level of main pulmonary artery. 4. Colonic diverticulosis. 5. Osteopenia. Various management parameters for solitary pulmonary nodules are in the literature. According to the Fleischner Society, recommendations for pulmonary nodules are as follows: According to the UPDATED 2017 Fleischner Society recommendations, the advised follow-up imaging for solid nodules < 6 mm is: HIGH RISK PATIENT: Optional CT at 12 months.
== END 2023-11-30 10:37 | disposition home or self-care (01) ==
LOC: HO.CT 10:36
PROVIDERS: PCP Internal Medicine; Visit Provider Hospitalist
DX: R91.8 Other nonspecific abnormal finding of lung field (principal)
CPT/HCPCS: 71250

== ENCOUNTER 2023-12-07 13:41 | Outpatient (AMB) | payer MEDICARE, SELFPAY ==
--- NOTE | 2023-12-07 13:54 | A.OFFVIS_ITS ---
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 Apparently went to see his primary care doctor after having some type of transient respiratory illness. She is noted to have abnormal breath sounds therefore he underwent a chest x-ray which was noted to be abnormal. Based on the abnormal chest x-ray he was requested to have a CT scan of the chest which she uses had. The patient otherwise is feeling well denies any fevers or chills. Denies any weight loss. He does have a smoking history but quit more than 20 years ago. He does exercise regularly which is reassuring. Denies any night sweats. He does coughing at times is productive in nature. Sometimes he wakes up in the morning and staying the pillows from mucus while sleeping. His CT scan of the chest was personally by me I also discussed it with the patient and his . Does have some areas of ground-glass opacities suggesting some degree of pneumonitis. Appears to be more right than left. In addition to that does have some more nodular solid looking densities in the lower lung zones left more than right. Somewhat spiculated in nature. Sat clear of these entities are the same process. Indeed with his recent illness this still could be some remnants of a smoldering infection although malignancy is also in differential. As far as exposures he denies any exposure to any mold or any animals or birds. He does have a sauna. He has been using it regularly. Therefore, will have the patient undergo blood work. Will start him on a course of doxycycline to treating for and impaired infection. In addition to that he will undergo PFTs. In 8 weeks will have him repeat a CT scan of the chest to see if the areas have improved. If the nodular density has not improved then will consider further diagnostic testing at that point. 12/07/2023 the patient is here for a pulm onary follow-up visit. The patient overall is feeling better. His cough is improved. He completed the antibiotics. Overall is back to his baseline. The patient did have a repeat CT scan of the chest demonstrating interval resolution of the ground-glass opacities in the airspace disease consistent with inflammatory infectious process. The patient still has small pulmonary nodules that appeared to be stable will need follow-up in a year. Also, the CT scan he does have mention a an aortic aneurism. The patient will need to follow-up with Cardiology regarding this. His ascending aorta. Measuring 4.1 cm he understands that this will need follow-up to make sure does not progress increasing size. The patient did undergo blood work was reassuring and his pulmonary function studies were also reassuring. Overall the patient is doing well from a respiratory status. He has other concerns that he will talk to Cardiology about and regarding the degenerative changes to his back he can follow-up with his primary care. The patient follow-up in a year's time after her CT scan of the chest. The patient has any issues prior to that he will call for an earlier assessment. [facility] Medical History (Updated 12/07/23 @ 22:18 by Ghassan Nguyễn MD) Aortic aneurysm Pneumonitis Allergies Elevated PSA Osteoarthritis Pure hypercholesterolemia Hernia Gout Surgical History H/O right inguinal hernia repair H/O colonoscopy Hx of prostate biopsy (~04/09/13) Hx of appendectomy (~1995) Family History Mother No problems noted. Father No problems noted. 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 Review of Systems Const Denies chills, Denies fatigue, Denies fever(s), Denies headache(s), Denies malaise and Denies weakness Eyes Denies blurry vision, Denies change in vision, Denies irritation and Denies itchy eyes ENT Denies dysphagia, Denies dizziness, Denies otalgia, Denies headache(s), Denies nasal congestion, Denies neck pain, Denies odynophagia and Denies sore throat Card Denies chest pain, Denies rapid heart rate, Denies irregular heart rhythm, Denies palpitations and Denies dyspnea Resp Denies chest congestion, Denies cough, Denies dyspnea and Denies wheezing GI Denies abdominal pain, Denies bloating, Denies constipation, Denies dysphagia, Denies heartburn, Denies diarrhea, Denies nausea, Denies odynophagia and Denies vomiting Denies hematuria, Denies difficulty urinating, Denies dysuria, Denies urinary frequency and Denies urinary urgency Musc Denies back pain, Denies arthralgias, Denies joint swelling, Denies muscle wea kness and Denies neck pain Skin/Breast Denies change in pigmentation, Denies lesions, Denies rash and Denies unusual bruising Neuro Denies dizziness, Denies headache(s), Denies paresthesias and Denies weakness Endo Denies fatigue and Denies palpitations Aller/Immun Denies itchy eyes and Denies wheezing Physical Exam Vital Signs: Last Vital Signs Pulse 55 12/07/23 13:55 BP 128/70 12/07/23 13:55 Pulse Ox 99 12/07/23 13:55 Oxygen Delivery Method Room Air 12/07/23 13:55 BMI result Body Mass Index 25.8 Const General: comfortable HEENT Head: Yes normocephalic Neck Neck: Yes supple Chest Chest palpation & inspection: normal inspection of the chest Resp Effort & Inspection: normal respiratory effort Auscultation: clear to auscultation bilaterally Cardio Heart sounds: S1 normal heart sound present and S2 normal heart sound present GI Palpation (GI): Soft to palpation Skin General skin exam: no rashes or lesions noted Extrem General: Yes no clubbing, cyanosis or edema Results Reviewed Results Reviewed: [address] [address] [address] Scan Report Signed Patient: Santosh Marin MR#: [id number] : 1950 Acct:[id number] Age/Sex: 73 / M ADM Date: 11/30/23 Loc: HO.CT Attending Dr: Ghassan Nguyễn MD Ordering Physician: Ghassan Nguyễn MD Date of Service: 11/30/23 Procedure(s): CT chest wo IV con Accession Number(s): [id number] cc: Too Cain MD; Ghassan Nguyễn MD~ EXAMINATION: CT CHEST WITHOUT CONTRAST CLINICAL INFORMATION: Abnormal findings lung field COMPARISON: CT chest from 09/14/2023 TECHNIQUE: Multidetector volumetric CT imaging of the chest was done. Axial MIP volume rendering provided. Sagittal and coronal reformatted images were obtained. This CT examination was performed using dose optimization techniques as appropriate, variously including the following: *Automated exposure control *Adjustment of mA and/or kV according to patient size (this includes techniques or standardized protocols for targeted exams where dose is matched to indication/reason for exam; i.e. extremities or head) *Use of iterative reconstruction technique DLP: 254 mGy-cm FINDINGS: LUNGS/PLEURA: Previously identified spiculated irregular lesion with air bronchograms in the left lower lobe posteriorly demonstrates resolution. Additional spiculated branching lesions with air bronchograms in the right lower lobe also demonstrated resolution. Groundglass foci in the right upper lobe are no longer visualized. Stable 2 mm nodule in the lateral aspect of the left upper lobe (series 5, image 71). Triangular nodule anterior aspect of the left upper lobe (series 5, image 241), stable. Redemonstration of irregular nodule in the lateral aspect of the left upper lobe (series 5, image 223) measuring 5 mm, stable Stable subpleural calcified granuloma lateral aspect left upper lobe (series 5, image 281). No new enlarged or suspicious pulmonary nodules or masses are noted. Central airways are patent. No pneumothorax. No large pleural effusion. MEDIASTINUM: Heart is not enlarged. No pericardial effusion. Coronary artery calcifications are noted. Aneurysmal dilatation of the ascending aorta measuring 4.1 cm level of main pulmonary artery. Descending aorta at this level measures 2.4 cm. Main pulmonary artery is not enlarged. No enlarged lymph nodes per size criteria. Visualized portions of the thyroid are unremarkable. AXILLA: No lymphadenopathy. UPPER ABDOMEN: Colonic diverticulosis. OSSEOUS STRUCTURES: Osteopenia. Multilevel degenerative changes of the thoracolumbar spine. . CT/CT chest wo IV con IMPRESSION: 1. Previously identified spiculated irregular lesion with air bronchograms in the left lower lobe posteriorly demonstrates resolution. Additional spiculated branching lesions with air bronchograms in the right lower lobe also demonstrated resolution. Groundglass foci in the right upper lobe are no longer visualized. Resolution of previous findings give credence to potentially infectious/inflammatory etiology. 2. Stable bilateral pulmonary nodules the largest measuring up to 5 mm. Continued follow-up as per Fleischner criteria. No new enlarged or suspicious pulmonary nodules or masses are noted. 3. Aneurysmal dilatation of the ascending aorta measuring 4.1 cm level of main pulmonary artery. 4. Colonic diverticulosis. 5. Osteopenia. Various management parameters for solitary pulmonary nodules are in the literature. According to the Fleischner Society, recommendations for pulmonary nodules are as follows: According to the UPDATED 2017 Fleischner Society recommendations, the advised follow-up imaging for solid nodules < 6 mm is: HIGH RISK PATIENT: Optional CT at 12 months. 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: Assessment & Plan Assessment & Plan (1) Pulmonary nodules/lesions, multiple: Code(s): R91.8 - Other nonspecific abnormal finding of lung field (2) Pneumonitis: Comment: resolved Code(s): J98.4 - Other disorders of lung (3) Allergies: Code(s): T78.40XA - Allergy, unspecified, initial encounter Qualifiers: Encounter type: initial encounter Qualified Code(s): T78.40XA - Allergy, unspecified, initial encounter (4) Pneumonia: Comment: resolved Code(s): J18.9 - Pneumonia, unspecified organism Qualifiers: Laterality: unspecified laterality Lung location: unspecified part of lung Pneumonia type: due to unspecified organism Qualified Code(s): J18.9 - Pneumonia, unspecified organism (5) Aortic aneurysm: Code(s): I71.9 - Aortic aneurysm of unspecified site, without rupture Qualifiers: Aortic location: thoracic aorta Thoracic aorta location: ascending aorta Presence of rupture: without rupture Qualified Code(s): I71.21 - Aneurysm of the ascending aorta, without rupture Plan Cardiology referral CT chest 1 year F/U 1 yr Orders: Orders CT chest wo IV con 11/11/24 R91.1 - Solitary pulmonary nodule Referrals Cardiology Referral I71.9 - Aortic aneurysm of unspecified site, without rupture Coding Level of Care Code Est Pt Level 4 (72496) Diagnoses Pulmonary nodules/lesions, multiple R91.8 Pneumonitis J98.4 Allergy, initial encounter T78.40XA Encounter type: initial encounter Pneumonia due to infectious organism, unspecified laterality, unspecified part of lung J18.9 Laterality: unspecified laterality Lung location: unspecified part of lung Pneumonia type: due to unspecified organism Aneurysm of ascending aorta without rupture I71.21 Aortic location: thoracic aorta Thoracic aorta location: ascending aorta Presence of rupture: without rupture Time Spent (min) 18
[2023-12-07 13:55] VITALS: BP 128/70; PULSE 55; O2SAT 99; BMI 25.8
== END 2023-12-07 14:24 | disposition home or self-care (01) ==
PROVIDERS: PCP Internal Medicine; Visit Provider Hospitalist
DX: R91.8 Other nonspecific abnormal finding of lung field (principal); J98.4 Other disorders of lung; T78.40XA Allergy, unspecified, initial encounter; J18.9 Pneumonia, unspecified organism; I71.21 Aneurysm of the ascending aorta, without rupture
CPT/HCPCS: 99214

== ENCOUNTER → 2023-12-07 13:41 | Outpatient (BNVA) | payer MEDICARE, SELFPAY | PROVIDERS: PCP Internal Medicine; Visit Provider Hospitalist | DX: J98.4 Other disorders of lung (principal); R91.8 Other nonspecific abnormal finding of lung field; J18.9 Pneumonia, unspecified organism; I71.21 Aneurysm of the ascending aorta, without rupture | CPT/HCPCS: 99212 ==

== ENCOUNTER 2024-02-21 13:10 | Outpatient (AMB) | payer MEDICARE, SELFPAY ==
[2024-02-21 13:17] VITALS: BP 120/78; PULSE 62; BMI 26.1
--- NOTE | 2024-02-21 13:17 | A.OFFVIS_ITS ---
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 He does not have any known history of cardiac issues including coronary artery disease or myocardial infarction or cardiomyopathy or in fact any other cardiac concerns. He denies any cardiac symptoms. Fairly healthy with no major limitations. [facility] Medical History Aortic aneurysm Pneumonitis Allergies Elevated PSA Osteoarthritis Pure hypercholesterolemia Hernia Gout Surgical History H/O right inguinal hernia repair H/O colonoscopy Hx of prostate biopsy (~04/09/13) Hx of appendectomy (~1995) Family History Mother No problems noted. Father No problems noted. 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 Cognitive needs: No Hearing needs: No Vision needs: No Review of Systems Const Denies chills, Denies daytime sleepiness, Denies fatigue, Denies fever(s), Denies frequent falls, Denies poor appetite, Denies snoring, Denies stops breathing during sleep, Denies weakness, Denies weight gain and Denies weight loss Eyes Denies loss of vision ENT Denies dizziness and Denies hearing loss Card Denies chest pain, Denies claudication, Denies leg edema, Denies lightheadedness, Denies palpitations, Denies dyspnea, Denies dyspnea on exertion and Denies orthopnea Resp Denies cough, Denies excessive phlegm production, Denies dyspnea, Denies dyspnea on exertion, Denies snoring and Denies wheezing GI Denies abdominal pain, Denies hematochezia, Denies change in bowel habits, Denies nausea and Denies vomiting Denies dysuria and Denies urinary frequency Musc Denies arthralgias, Denies muscle weakness, Denies numbness and Denies other (frequent falls) Skin/Breast Denies nail changes and Denies rash Neuro Denies Abnormal speech present, Denies dizziness, Denies frequent falls, Denies loss of vision, Denies memory loss, Denies numbness and Denies weakness Psych Denies depression and Denies memory loss Endo Denies fatigue and Denies palpitations Michael/Lymph Reports easy bruising and Reports other (anemia) Aller/Immun Denies wheezing Physical Exam Vital Signs: Last Vital Signs Pulse 62 02/21/24 13:17 BP 120/78 02/21/24 13:17 BMI result Body Mass Index 26.1 Const General: comfortable and no acute distress Orientation/consciousness: patient oriented x3 HEENT Other: Unremarkable Head: Yes normal to inspection Neck Neck: Yes normal visual inspection Chest Chest palpation & inspection: normal inspection of the chest Resp Auscultation: clear to auscultation bilaterally Cardio Palpation: normal PMI Heart sounds: S1 normal heart sound present, S2 normal heart sound present, no gallops, no murmurs and no rubs GI Palpation (GI): Soft to palpation Back/Spine/Pelvis Other: unremarkable Skin General skin exam: no rashes or lesions noted Neuro General: patient oriented x3 Speech: No Abnormal speech present Extrem General: Yes normal to inspection Psych Mental Status: mental status grossly normal Office Procedures EKG Details: EKG with sinus rhythm at 62/Min; no significant ST-T changes and otherwise unremarkable. [id number], Complete Assessment & Plan Assessment & Plan (1) Ascending aortic aneurysm: Code(s): I71.21 - Aneurysm of the ascending aorta, without rupture Category: Medical Plan: In the CT chest, ascending aortic size 4.1 cm. Discussed with patient. We can follow this on echocardiograms. (2) Coronary artery calcification seen on CAT scan: Code(s): I25.10 - Atherosclerotic heart disease of kenaitze coronary artery without angina pectoris Category: Medical Plan: Ungated chest CT scan describes coronary artery calcifications. History of smoking. Uncontrolled lipids. LDLs are almost 200 and above. Hence check exercise stress perfusion imaging study for any obstructive CAD. With regard to high lipids, discussed about statins but he states he would not take any as he does not believe in them. Orders: Orders CA echo transthoracic complete Today I25.10 - Atherosclerotic heart disease of kenaitze coronary artery without angina pectoris, I71.21 - Aneurysm of the ascending aorta, without rupture NM cardiolite stress test Today I71.21 - Aneurysm of the ascending aorta, without rupture, R07.2 - Precordial pain CA stress test Today I71.21 - Aneurysm of the ascending aorta, without rupture, R07.2 - Precordial pain Coding Level of Care Code New Pt Level 4 (40298) Diagnoses Ascending aortic aneurysm I71.21 Coronary artery calcification seen on CAT scan I25.10 CPT Codes EKG - CPT: 15955-[id number], Complete ([id number])
== END 2024-02-21 13:46 | disposition home or self-care (01) ==
PROVIDERS: PCP Internal Medicine; Visit Provider Internal Medicine
DX: I71.21 Aneurysm of the ascending aorta, without rupture (principal); I25.10 Atherosclerotic heart disease of native coronary artery without angina pectoris
CPT/HCPCS: 93010; 99204

== ENCOUNTER → 2024-02-21 13:10 | Outpatient (BNVA) | payer MEDICARE, SELFPAY | PROVIDERS: PCP Internal Medicine; Visit Provider Internal Medicine | DX: I71.21 Aneurysm of the ascending aorta, without rupture (principal); I25.10 Atherosclerotic heart disease of native coronary artery without angina pectoris | CPT/HCPCS: 93005; 99202 ==

== ENCOUNTER 2024-02-29 09:57 | Day surgery (SDC) | payer MEDICARE, SELFPAY ==
[2024-02-28 07:33] VITALS: BMI 28.9
--- NOTE | 2024-02-28 11:35 | HO.ANESPROP2 ---
HPI - Anesthesia Eval Consult details Narrative: 73yo M for Colonoscopy Seen by [facility] cardiology 02/2024 as new patient for incidental AAA @ 4.1cm. Asymptomatic. Pending ECHO/Stress - ok to proceed without results per cardiology [facility] Active Problems Active Problems: All Active Problems Coronary artery calcification seen on CAT scan (Acute) Ascending aortic aneurysm (Acute) Aortic aneurysm (Acute) Pneumonia (Acute) Pneumonitis (Acute) Allergies (Acute) Pulmonary nodules/lesions, multiple (Acute) Solitary pulmonary nodule (Acute) Positive colorectal cancer screening using Cologuard test (Acute) Colon cancer screening (Acute) Elevated PSA (Acute) Osteoarthritis (Acute) Pure hypercholesterolemia (Acute) Annual physical exam (Acute) Bee sting allergy (Acute) Tick bite of abdomen (Acute) Hair loss (Acute) Swelling of right foot (Acute) Primary osteoarthritis, left shoulder (Acute) Gout (Acute) Past Medical History Medical History Aortic aneurysm Pneumonitis Allergies Elevated PSA Osteoarthritis Pure hypercholesterolemia Hernia Gout Family History Family History Mother No problems noted. Father No problems noted. 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 Previously identified spiculated irregular lesion with air bronchograms in the left lower lobe posteriorly demonstrates resolution. Additional spiculated branching lesions with air bronchograms in the right lower lobe also demonstrated resolution. Groundglass foci in the right upper lobe are no longer visualized. Resolution of previous findings give credence to potentially infectious/inflammatory etiology. 2. Stable bilateral pulmonary nodules the largest measuring up to 5 mm. Continued follow-up as per Fleischner criteria. No new enlarged or suspicious pulmonary nodules or masses are noted. 3. Aneurysmal dilatation of the ascending aorta measuring 4.1 cm level of main pulmonary artery. 4. Colonic diverticulosis. 5. Osteopenia. Assessment and Plan Assessment Anesthesia Assessment: Chart Reviewed
[2024-02-29 11:51] VITALS: BP 118/85; PULSE 56; RESP 20; TEMP 36.1; O2SAT 97
--- NOTE | 2024-02-29 12:10 | PC.NURSE ---
tannish to yellow results after fleets
[2024-02-29] MEDS: Lactated Ringers 1,000 ML 100 ML IVCONT (12:19)
--- NOTE | 2024-02-29 12:53 | MHC.SHP ---
Pre-Procedural Eval Section A - 24 Hr Update-Section A only Date of Service: 02/29/24 Section B - Complete if H&P > 30 days Chief Complaint: Other fecal abnormalities Details of Present Illness: pos cologuard Relevant Family History (Specify if Yes): No Relevant Social History: None Present Medications: see Short Stay Collaborative assessment Medical History: Significant History (Pneumonitis Allergies Elevated PSA Osteoarthritis Pure hypercholesterolemia Hernia Gout) History of Previous Operations: Relevant previous surgery/procedure and date(s) (H/O right inguinal hernia repair H/O colonoscopy Hx of prostate biopsy (~04/09/13) Hx of appendectomy (~1995)) Allergies: Allergies Allergy/AdvReac Type Severity Reaction Status Date / Time levofloxacin [From LEVAQUIN] Allergy Unknown JOINT Verified 02/13/24 13:43 SWELLING Surgical History Review of Systems Sugical H&P ROS: Negative: Constitution, Cardiovascular, Respiratory, Neurological, Psychiatric, Hem-Onc, Allergic/Immunologic, Gastrointestinal, Genitourinary, Musculoskeletal, Integumentary, Endocrine and Eyes/Ears/Nose/Throat Exam Surgical H&P Exam: Normal: HEENT, Normal: Heart, Normal: Lungs, Normal: Extremities, Normal: Abdomen, Normal: Skin and Normal: Neurological Plan Diagnosis/Plan: Unchanged I have reviewed the history and physical and performed a pertinent physical examination on my patient. No changes have occurred unless specified. Time Spent With Patient Time: Total time managing care of this patient today ____ minutes.
--- NOTE | 2024-02-29 12:56 | P.OPN-COLO_ITS ---
Colonoscopy Operative Note Operative Note Date of Service: 02/29/24 Narrative: Operative Information Procedure Description: Colonoscopy Indication: pos cologuard Anesthesia: MAC COLONOSCOPY Instrument: Olympus variable stiffness ADULT scope 190L Colonoscopy Monitoring: Vital signs and clinical assessment, continuous EKG monitoring, Pulse oximetry, Carbon Dioxide monitoring and blood pressure monitoring were done throughout the procedure. Colon withdrawal time was 12 minutes. Procedure: The patient was placed in the left lateral decubitis position and pre-procedure medications were administered. After a digital rectal examination of the ano-rectum, the video colonoscope was inserted into the rectum and advanced through the colon to the cecum/TI. The colonoscope was slowly withdrawn in a retrograde panoramic fashion and the colon mucosa was carefully examined including a retroflexed view of the rectum. Findings and interventions are described below. Procedure Difficulty: moderate due to tight turns and angles in sigmoid Findings: Terminal Ileum-normal Cecum:normal right sided retroflexion- normal Ascending Colon: mild diverticulosis Transverse Colon -normal Descending Colon: moderate diverticulosis, 4-6 mm sessile polyp removed with cold forceps Sigmoid Colon: severe diverticulosis with tight angles, 4-6 mm sessile polyp removed with cold forceps Rectum: Retroflexion with small internal hemorrhoids seen, grade I, 3-4 mm sessile polyp removed with cold forceps Anorectum - normal Intervention: cold forceps polypectomy Colon preparation: Talbott Bowel Preparation Scale Right colon; 2 Transverse colon: 2 Left colon; 2 (0 = Unprepared colon segment with mucosa not seen due to solid stool that cannot be cleared. 1 = Portion of mucosa of the colon segment seen, but other areas of the colon segment not well seen due to staining, residual stool and/or opaque liquid. 2 = Minor amount of residual staining, small fragments of stool and/or opaque liquid, but mucosa of colon segment seen well. 3 = Entire mucosa of colon segment seen well with no residual staining, small fragments of stool or opaque liquid) Impression and Post Procedure Diagnosis: diverticulosis colon polyps internal hemorrhoids Plan: High fiber diet leaflet Avoid straining at stool, epsom salts and sitz bath, anusol supps or cream Repeat Colonoscopy in 5 years if adenomatous polyps, 10 yrs if non adenomatous or earlier if clinically indicated Above findings were reviewed with the patient and relevant handouts were provided if indicated.
[2024-02-29 13:50] VITALS: BP 116/62; PULSE 60; RESP 16; TEMP 36.1; O2SAT 100
[2024-02-29 14:04] VITALS: BP 109/57; PULSE 62; RESP 18; TEMP 36.1; O2SAT 99
== END 2024-02-29 14:40 | disposition home or self-care (01) ==
PROVIDERS: PCP Internal Medicine; Visit Provider Internal Medicine Gastroenterology
PROC: 0DJD8ZZ Inspection of Lower Intestinal Tract, Via Natural or Artificial Opening Endoscopic (ICD-10-PCS; CPT 45378; principal; 2024-02-29 13:10)
DX: R19.5 Other fecal abnormalities (principal); D12.5 Benign neoplasm of sigmoid colon; D12.8 Benign neoplasm of rectum; K57.30 Diverticulosis of large intestine without perforation or abscess without bleeding; K64.0 First degree hemorrhoids; E78.00 Pure hypercholesterolemia, unspecified; Z87.891 Personal history of nicotine dependence
CPT/HCPCS: 45380; 88305; J2704

== ENCOUNTER → 2024-02-29 09:57 | Outpatient (BNV) | payer MEDICARE, SELFPAY | PROVIDERS: PCP Internal Medicine; Visit Provider Internal Medicine Gastroenterology | DX: Z12.11 Encounter for screening for malignant neoplasm of colon (principal); R19.5 Other fecal abnormalities; K57.90 Diverticulosis of intestine, part unspecified, without perforation or abscess without bleeding; D12.5 Benign neoplasm of sigmoid colon; D12.8 Benign neoplasm of rectum | CPT/HCPCS: 45380 ==

== ENCOUNTER → 2024-03-25 07:52 | Outpatient (REF) | payer MEDICARE, SELFPAY ==
--- NOTE | ~2024-03-25 | NM_ITS ---
Exercise Myocardial perfusion study Indication: Chest pain to evaluate for myocardial ischemia Technique: The patient was brought in for an exercise perfusion study on 03/25/2024. Patient performed exercise as per Jerry protocol and was injected 25 mCi of sestamibi was given intravenously one target HR was achieved. Images were obtained using the SPECT gamma camera interlaced with the gating device. Images were obtained in supine position. Resting perfusion study was performed on 03/26/2024. Patient was administered 25 mCi of sestamibi intravenously at rest. Images were then obtained in supine position. Images obtained with and without CT attenuation. Total DLP 93 mGy-cm. Images were processed with the software and compared side to side in short axis, horizontal long axis and vertical long axis views. Findings: The stress perfusion study showed non attenuated images show minimal reduced uptake in the basal inferior wall of the LV myocardium. Remainder of the LV myocardium is normally perfused. Attenuation corrected images show normal uptake of radiotracer in all segments of LV myocardium. The gated study shows normal LV systolic function with calculated LVEF of 54%. LV cavity is normal in size. The gated study shows normal systolic wall thickening and contraction of all segments. There is no transient ischemic dilation. Resting study shows no significant change in perfusion pattern compared to stress perfusion study. Gating at rest reveals normal systolic wall motion with ejection fraction at 53%. The findings are consistent with no clear defect suggestive of ischemia. NM/NM cardiolite stress test Impression: 1. Normal myocardial perfusion 2. Gated LVEF is 54% 3. Transient ischemic dilatation not present Stress EKG is negative for ischemia
--- NOTE | 2024-03-25 07:56 | CA_ITS ---
Acquisition Time: 2024-03-25 08:59:10 Total Exercise Time: 00:10:00 Test Indications: CAD Medications: SEE H Protocol: SARAH Max HR: 134 BPM 89% of Pred: 149 BPM Max BP: 154/078 mmHG Max Work Load: 11.7 METS Exercise stress test with exercise 10 min of Sarah protocol, achieving 89% MPHR, without anginal symptoms, with multifocal isolated PVCs throughout test, with normotensive response to exercise, without EKG changes meeting criteria for ischemia. Nuclear images pending. Test reviewed with Dr Tai. Referred By: Dago Altman Overread By: SOLOMON DIGGS
--- NOTE | 2024-03-25 07:56 | CA_ITS ---
Transthoracic Echocardiogram Patient (Last, First, Middle): Santosh Marin E Gender: Male Date of : 1950 Age: 73 Procedure Date: 03/25/2024 Procedure Type: Transthoracic Echocardiogram Location: OP Height: 180.34 cm Weight: 81.65 kg BSA: 2.02 m2 Heart Rate: 50 bpm BP: 128 / 80 mmHg Hair Stylist: JOVAN Referring MD: Dago Altman MD Symptoms: I25.10 - Atherosclerotic heart disease of in[place] coronary artery without... Study Quality: Fair ECG Rhythm: Bradycardia Conclusions: - The left ventricular systolic function is low normal. The visually estimated ejection fraction is between 50-55%. - No obvious valvular pathology seen on this study. Findings Left Ventricle Normal left ventricular cavity size. There is normal left ventricular wall thickness. The left ventricular systolic function is low normal. The visually estimated ejection fraction is between 50-55%. There is no evidence of regional wall motion abnormalities. Diastolic function is normal for age. LV peak GLS -18.3%. Right Ventricle Mildly increased right ventricular cavity size. Atria Mild biatrial enlargement. Aortic Valve There is a normal trileaflet aortic valve. There is mild calcification of the aortic valve. There is no aortic valve stenosis. There is trace (trivial) aortic valve regurgitation. Mitral Valve There is mild anterior mitral leaflet thickening. There is trace mitral valve regurgitation. There is no mitral valve stenosis. Pulmonic Valve The pulmonic valve is likely normal. Tricuspid Valve There is trace tricuspid valve regurgitation. There is no evidence of pulmonary hypertension. Great Vessels The asc aorta and aortic arch are normal in size. Venous The inferior vena cava was not well visualized. The inferior vena cava is normal in size. Pericardium/Pleural There is no evidence of pericardial effusion. Prior Study Comparison No prior study available for comparison. Recommendations, Care & Conclusions No obvious valvular pathology seen on this study. Measurements 2D Linear Measurements IVSd: 1.00 0.6-0.9/0.6-1.0 cm LVIDd: 5.34 3.9-5.3/4.2-5.9 cm LVIDd Index: 2.64 2.4-3.2/2.2-3.1 cm/m2 LVIDs: 3.57 2.0-3.6 cm LVPWd: 0.89 0.7-1.1 cm LA Diam: 4.00 2.7-3.8/3.0-4.0 cm LAIDs Index: 1.98 1.5-2.3 cm/m2 LV Mass: 235.01 67-162/88-224 g LV Mass Index: 116.34 43-95/49-115 g/m2 LVOT Diam: 2.30 3.0+(-)1.3 cm 2D Systolic Function EF 4C: 55.40 >55% EF 2C: 57.10 >55% EF BiP: 56.50 >55% Mitral Valve MV Pk E: 0.55 MV PK A: 0.73 MV Decel Time: 372.00 E/A: 0.80 E'Lateral: 11.40 E'Medial: 7.94 E/E' Med: 6.90 E/E' Lat: 4.80 PHT: 109.00 MVA PHT: 2.02 Decel [place]: 1.47 Aortic Valve AoV Pk Paulo: 1.21 AoV Mn Paulo: 0.94 AoV VTI: 0.37 AoV Pk Grad: 6.00 Aov Mn Grad: 4.00 GOLDEN Cont.VTI: 2.90 AI Pk Paulo: 4.24 AI [place]: 1.71 LVOT LVOT Pk Paulo: 0.99 LVOT Mn Paulo: 0.70 LVOT VTI: 0.26 LVOT Pk Grad: 4.00 LVOT Mn Grad: 2.00 LVOT Diam: 2.30 LVOT Area: 4.15 Diastolic Function MV Pk E: 0.55 MV Pk A: 0.73 E/A: 0.80 E'Medial: 7.94 E/E' Med: 6.90 E' Laterial: 11.40 E/E' Lat: 4.80 Right Ventricle TAPSE (mm): 18.40 TVS' Paulo: 8.32 Tricuspid Valve TR Pk Paulo: 1.94 TR Pk Grad: 15.00 Great Vessels Aorta Sinus of Valsalva: 3.90 2.0-3.5 cm Ao Asc: 3.90 2.1-3.4 cm Ao Arch: 3.40 Pulmonary Valve PV Pk Paulo: 0.71 Peak PV Grad: 2.00 Updated in Other Vendor System with Status of Final Dago Altman MD electronically signed on 03/26/2024 8:17:13 AM with status of Final
== END ==
LOC: HO.CARD 07:52
PROVIDERS: PCP Internal Medicine; Visit Provider Internal Medicine
DX: R07.2 Precordial pain (principal); I71.21 Aneurysm of the ascending aorta, without rupture; I25.10 Atherosclerotic heart disease of native coronary artery without angina pectoris
CPT/HCPCS: 78452; 93017; 93306; 93356; A9500

== ENCOUNTER → 2024-03-25 07:56 | Outpatient (BNV) | payer MEDICARE, SELFPAY | PROVIDERS: PCP Internal Medicine; Visit Provider Nurse Practitioner Family | DX: R07.9 Chest pain, unspecified (principal); I51.7 Cardiomegaly; I25.10 Atherosclerotic heart disease of native coronary artery without angina pectoris; I35.8 Other nonrheumatic aortic valve disorders | CPT/HCPCS: 78452; 93016; 93018; 93350; 93356 ==

== ENCOUNTER 2024-12-03 07:14 | Outpatient (REF) | payer MEDICARE, SELFPAY ==
--- NOTE | ~2024-12-03 | CT_ITS ---
CLINICAL HISTORY: R91.1 - Solitary pulmonary nodule CT chest without contrast Comparison: CT/SR - CT CHEST WO IV CON - 11/30/23 10:49 EST Findings: No cardiomegaly or pericardial effusion. Moderate atherosclerotic disease of the coronary arteries. No discrete thyroid lesion. No mediastinal adenopathy. Stable 5 mm nodule within the left upper lobe, axial 66. Stable 3 mm nodule within the left upper lobe, axial 74. No new, increasing or suspicious nodule. No effusion. No pneumothorax. Visualized upper abdomen is unremarkable. No acute osseous finding. Impression: Stable small left upper lobe nodules. No suspicious lesion. Given long-term stability these can be considered benign. This document has been electronically signed by: Gallo Baron MD on 12/04/2024 11:06:47
--- OUTSIDE RECORDS SUMMARY | 2024-12-03 07:16 | XMS_ITS | Patient Health Record ---
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 Name Role Phone Ant YOUNG, [place] Primary Care Provider Fransisco Herndon Unavailable [phone] Allergies Allergen (clinical drug ingredient) Drug/Non Drug Allergy documented on EMR Reaction Allergy Type Onset Date Status Levaquin tendons snap Drug Allergy Acti ve Reason For Referral No Information Medications Medication SIG (Take, Route, Frequency, Duration) Notes Start Date End Date Status Colcrys 0.6 MG as directed Orally daily for 30 days 04/30/2012 Not-Taking Colcrys 0.6 MG as directed Orally daily for 30 days 04/30/2012 Not-Taking Prednisone 10mg for 10days Act neo Immunizations Vaccine Route Administration Date Status Comme nts COVID-19 Pfizer BioNTech Vaccine Unknown 07/29/2021 Administered 1st 06/30/2021 Social History Tobacco Use: Social History Observation Description Date Details (start date - stop date) Former Smoker NA - 10/09/1991 Tobacco Use/Smoking Question Answer Notes Are you a: former smoker When did you stop smoking? 10/09/1991 Additional Findings: Tobacco Non-User Ex-cigaret te smoker Alcohol Screen Question Answer Notes Did you have a drink containing alcohol in the p ast year? No Points 0 Interpretation Negative Tobacco use other than smoking: Question Answer Notes Are you an other tobacco user? 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 Plan Of Treatment Pending Test Test Name Order Date *Uric Acid, Serum 10/18/2021 *Sedimentation Rate-Westergren 2 X ray : Foot, right 3V 10/18/2021 64305, J0702- Neuroma/Injection 04/16/20 12 Insurance Providers Payer Name Payer Address Payer Phone Subscriber Number Group Number Insured Name Patient Relationship to Insured Coverage Start Date Coverage End Date Medicare [employer] [address] [place] [address] [id number] Santosh Marin Self - patient is the insured [employer] [address] [place] [address] [id number] Santosh Marin Self - patient is the insured Medical (General) History Medical History History ICD Code measles mumps chicken pox Surgical History Surgery Date(Month/Year) appendectomy 1998 hernia 2004
== END 2024-12-03 07:15 | disposition home or self-care (01) ==
LOC: HO.CT 07:14
PROVIDERS: PCP Internal Medicine; Visit Provider Hospitalist
DX: R91.1 Solitary pulmonary nodule (principal)
CPT/HCPCS: 71250

== ENCOUNTER → 2024-12-03 07:15 | Outpatient (BNV) | payer MEDICARE, SELFPAY | PROVIDERS: PCP Internal Medicine; Visit Provider Radiology Vascular & Interventional Radiology | DX: R91.1 Solitary pulmonary nodule (principal) | CPT/HCPCS: 71250 ==